=== PATIENT | female | born 2000 | race Hispanic/Latino ===

== ENCOUNTER 2020-11-21 01:29 | Inpatient (IN) | payer MEDICAID ==
[~2020-11-21] VITALS: Ht 152.4 cm; Wt 71.2 kg
[2020-11-21 01:35] VITALS: BP 171/102
[2020-11-21] MEDS ORDERED: LACTATED RINGERS 1000ML 1,000 ML IV PRN (02:30)
[2020-11-21 02:32] LABS: APPEARANCE,URINE Clear (CLEAR); BILIRUBIN,URINE Negative (NEGATIVE); COLOR,URINE Dark Yellow (YELLOW); GLUCOSE, URINE (UA) Negative (NEGATIVE); KETONES,URINE Negative (NEGATIVE); LEUKOCYTE ESTERASE ,URINE Trace (NEGATIVE); NITRATE,URINE Negative (NEGATIVE); OCCULT BLOOD,URINE Negative (NEGATIVE); PROTEIN,URINE 300 mg/dL (NEGATIVE)
[2020-11-21 02:33] LABS: HEMATOCRIT 35.6 % (36-48); MEAN CORPUSCULAR HEMOGLOBIN 31.6 pg (27.0-33.0); MEAN CORPUSCULAR HGB CONC 35.1 g/dL (32.0-36.0); MEAN CORPUSCULAR VOLUME 90.1 fL (80-100); RED BLOOD CELL COUNT(AUTO) 3.95 MIL/uL (4.00-5.50); RED CELL DISTRIBUTION WIDTH 12.2 % (11.0-15.5); WHITE BLOOD COUNT (AUTO) 12.4 K/uL (4.8-10.8)
[2020-11-21 02:47] LABS: CREATININE 0.6 mg/dL (0.5-1.5); POTASSIUM 4.1 mmol/L (3.5-5.1)
[2020-11-21 02:48] LABS: INR 0.88 (0.85-1.15); PROTHROMBIN TIME 9.7 SEC (9.6-11.6)
[2020-11-21 02:50] LABS: PARTIAL THROMBOPLASTIN TIME 22.9 SEC (26.3-35.5)
[2020-11-21 02:50] LABS: BACTERIA,URINE Few /HPF (None Seen); RBC,URINE None Seen /HPF (0-1)
[2020-11-21 02:52] LABS: ALBUMIN 2.5 g/dL (3.5-5.0); BILIRUBIN,TOTAL 0.6 mg/dL (0.2-1.0); URIC ACID 6.5 mg/dL (2.6-7.2)
[2020-11-21] MEDS ORDERED: MAGNESIUM 4GM PREMIX 100ML 100 ML IV PRN ×3 (03:00→19:00)
[2020-11-21] MEDS ORDERED: EPHEDRINE SULFATE 50 MG/ML AMPULE IVP PRN (03:00)
[2020-11-21] MEDS ORDERED: NALOXONE HCL 0.4 MG/1 ML ML IV PRN (03:00)
[2020-11-21] MEDS ORDERED: CALCIUM GLUC 1GM VIAL IV PRN ×2 (03:00→18:00)
[2020-11-21] MEDS ORDERED: MEPERIDINE-PF 50 MG/ML SYG IVP ONE (03:00)
[2020-11-21] MEDS ORDERED: LACTATED RINGERS 500 ML 500 ML IV PRN (03:00)
[2020-11-21] MEDS ORDERED: ROPIVACAINE 0.2% 100ML VIAL 100 ML EP PRN (03:00)
[2020-11-21] MEDS ORDERED: PROMETHAZINE HCL 25 MG/ML 1ML AMPULE IM PRN (03:00)
[2020-11-21] MEDS ORDERED: LACTATED RINGERS 1000ML 1,000 ML IV SCH ×3 (03:00→19:00)
[2020-11-21] MEDS ORDERED: MAGNESIUM SULFATE 40GM/1000ML 1,000 ML IV ONE (03:03)
[2020-11-21] MEDS ORDERED: MAGNESIUM 4GM PREMIX 100ML 100 ML IV ONE (03:03)
[2020-11-21 03:19] VITALS: BP 157/103
[2020-11-21] MEDS ORDERED: PREN1TAB80 PO (03:47)
[2020-11-21] MEDS ORDERED: LABETALOL 20MG VIAL IV PRN (04:00)
[2020-11-21] MEDS ORDERED: OXYTOCIN-LR 20 UNITS/1000 ML 1,000 ML IV SCH (06:00)
[2020-11-21] MEDS ORDERED: MEPERIDINE-PF 50 MG/ML SYG ONE (09:31)
[2020-11-21] MEDS ORDERED: MEPERIDINE-PF 50 MG/ML SYG IVP PRN (10:00)
[2020-11-21] MEDS ORDERED: MISOPROSTOL 200 MCG TABLET ONE (16:56)
[2020-11-21] MEDS ORDERED: MEPERIDINE-PF 25 MG/ML SYG IVP ONE (17:30)
[2020-11-21] MEDS ORDERED: MISOPROSTOL 200 MCG TABLET VG SCH (17:30)
[2020-11-21] MEDS ORDERED: MEPERIDINE-PF 25 MG/ML SYG ONE (17:42)
[2020-11-21] MEDS ORDERED: OXYTOCIN 10 USP UNITS/ML IV PRN (18:00)
[2020-11-21] MEDS ORDERED: MAGNESIUM SULFATE 40GM/1000ML 1,000 ML IV PRN ×2 (18:00→19:00)
[2020-11-21] MEDS: OXYTOCIN-LR 20 UNITS/1000 ML 1,000 ML IV SCH ×2 (18:19→18:51)
[2020-11-21] MEDS ORDERED: IBUPROFEN 600 MG TABLET ONE (18:40)
[2020-11-21] MEDS ORDERED: LANOLIN 30GM OINTMENT TP PRN (19:00)
[2020-11-21] MEDS ORDERED: WITCH HAZEL 1 PAD TP PRN (19:00)
[2020-11-21] MEDS ORDERED: BENZOCAINE/LANOLIN/ALOE VERA 60 ML AEROSOL TP PRN (19:00)
[2020-11-21] MEDS ORDERED: MEASLES/MUMPS/RUBELLA VACCINE, LIVE 0.5 ML/VIAL SQ PRN (19:00)
[2020-11-21] MEDS ORDERED: DIPH,PERTUSS(ACELL),TET VAC/PF 0.5 ML VIAL IM PRN (19:00)
[2020-11-21] MEDS ORDERED: ACETAMINOPHEN WITH CODEINE 1 TAB TAB PO PRN (19:00)
[2020-11-22] MEDS: IBUPROFEN 600 MG TABLET PO PRN ×2 (00:45→17:26)
[2020-11-22 07:31] LABS: HEMATOCRIT 30.2 % (36-48); MEAN CORPUSCULAR HEMOGLOBIN 31.8 pg (27.0-33.0); MEAN CORPUSCULAR HGB CONC 34.8 g/dL (32.0-36.0); MEAN CORPUSCULAR VOLUME 91.5 fL (80-100); RED BLOOD CELL COUNT(AUTO) 3.3 MIL/uL (4.00-5.50); RED CELL DISTRIBUTION WIDTH 12.2 % (11.0-15.5)
[2020-11-22 08:15] LABS: HEPATITIS Bs ANTIGEN SCREEN P Negative (Negative)
[2020-11-22] MEDS: DOCUSATE SODIUM 100 MG CAP PO SCH ×2 (09:00→20:52)
[2020-11-22 09:52] VITALS: BP 137/93
[2020-11-22 11:27] VITALS: BP 147/96
[2020-11-22 16:12] VITALS: BP 142/86
[2020-11-22 19:52] VITALS: BP 132/85
[2020-11-22 23:56] VITALS: BP 157/99
[2020-11-23 00:56] VITALS: BP 155/97
[2020-11-23] MEDS: IBUPROFEN 600 MG TABLET PO PRN (01:03)
[2020-11-23 04:55] VITALS: BP 151/93
[2020-11-23 08:15] VITALS: BP 166/117
[2020-11-23 08:18] VITALS: BP 160/101
[2020-11-23] MEDS: DOCUSATE SODIUM 100 MG CAP PO SCH ×2 (09:07→20:46)
[2020-11-23] MEDS: ACETAMINOPHEN 325 MG TAB PO PRN ×3 (09:08→23:54)
[2020-11-23] MEDS ORDERED: MAGNESIUM 4GM PREMIX 100ML 100 ML IV PRN ×2 (09:30)
[2020-11-23] MEDS ORDERED: HYDRALAZINE 20MG/ML VIAL IV SCH (09:30)
[2020-11-23] MEDS ORDERED: CALCIUM GLUC 1GM VIAL IV PRN (09:30)
[2020-11-23] MEDS ORDERED: LACTATED RINGERS 1000ML 1,000 ML IV SCH (09:30)
[2020-11-23] MEDS ORDERED: MAGNESIUM SULFATE 40GM/1000ML 1,000 ML IV PRN (09:30)
[2020-11-23] MEDS: MAGNESIUM SULFATE 40GM/1000ML 1,000 ML IV PRN (15:43)
[2020-11-24] MEDS: MAGNESIUM SULFATE 40GM/1000ML 1,000 ML IV PRN (06:44)
[2020-11-24] MEDS: DOCUSATE SODIUM 100 MG CAP PO SCH ×2 (09:00→20:24)
[2020-11-24 14:33] VITALS: BP 135/90
[2020-11-24 16:24] VITALS: BP 133/83
[2020-11-24 19:44] VITALS: BP 136/96
[2020-11-24 23:02] VITALS: BP 148/87
[2020-11-25 03:09] VITALS: BP 132/89
[2020-11-25 07:24] VITALS: BP 135/82
[2020-11-25] MEDS: DOCUSATE SODIUM 100 MG CAP PO SCH (09:22)
[2020-11-25] MEDS: IBUPROFEN 600 MG TABLET PO PRN (09:23)
[2020-11-25 11:26] VITALS: BP 124/74
== END 2020-11-25 15:55 | disposition home or self-care (01) | DRG 560 ==
LOC: EDH 01:29 → OBSVTOIN 01:30 → LDH 01:30 → WSH 11-22 09:30 → LDH 11-23 09:43 → WSH 11-24 16:26
PROVIDERS: ADMIT Obstetrics & Gynecology; ATTEND Obstetrics & Gynecology
PROC: 10E0XZZ Delivery of Products of Conception, External Approach (ICD-10-PCS; principal; 2020-11-21)
PROC: 0UQMXZZ Repair Vulva, External Approach (ICD-10-PCS; 2020-11-21)
PROC: 10907ZC Drainage of Amniotic Fluid, Therapeutic from Products of Conception, Via Natural or Artificial Opening (ICD-10-PCS; 2020-11-21)
PROC: 0UQGXZZ Repair Vagina, External Approach (ICD-10-PCS; 2020-11-21)
PROC: 3E0R3BZ Introduction of Anesthetic Agent into Spinal Canal, Percutaneous Approach (ICD-10-PCS; 2020-11-21)
PROC: 00HU33Z Insertion of Infusion Device into Spinal Canal, Percutaneous Approach (ICD-10-PCS; 2020-11-21)
PROC: 3E0234Z Introduction of Serum, Toxoid and Vaccine into Muscle, Percutaneous Approach (ICD-10-PCS; 2020-11-21)
PROC: 3E0134Z Introduction of Serum, Toxoid and Vaccine into Subcutaneous Tissue, Percutaneous Approach (ICD-10-PCS; 2020-11-21)
DX: O14.04 Mild to moderate pre-eclampsia, complicating childbirth (principal); O71.4 Obstetric high vaginal laceration alone; O71.82 Other specified trauma to perineum and vulva; Z37.0 Single live birth; Z3A.39 39 weeks gestation of pregnancy; Z23 Encounter for immunization
CPT/HCPCS: 36415; 80053; 81001; 82044; 84550; 85027; 85384; 85610; 85730; 86592; 86850; 86900; 86901; 87340; 90715; A4314; A4344; G0378; J0360; J2175; J2550; J2590; J2795; J3475; J3490; J7120

== ENCOUNTER 2022-03-30 19:45 | Emergency (ER) | payer MEDICAID ==
[~2022-03-30] VITALS: Ht 154.9 cm; Wt 57.6 kg
[~2022-03-30 19:45] MED LIST: PREN1TAB80 PO
[2022-03-30 21:53] LABS: APPEARANCE,URINE CLEAR (CLEAR); BILIRUBIN,URINE NEGATIVE (NEGATIVE); COLOR,URINE YELLOW (YELLOW); GLUCOSE, URINE (UA) NEGATIVE (NEGATIVE); HCG,QUALITATIVE URINE POSITIVE (NEGATIVE); KETONES,URINE NEGATIVE (NEGATIVE); LEUKOCYTE ESTERASE ,URINE 75 Leu/uL (NEGATIVE); NITRATE,URINE NEGATIVE (NEGATIVE); PROTEIN,URINE NEGATIVE (NEGATIVE); UROBILINOGEN,URINE 0.2 mg/dL (0.2-1.0)
[2022-03-30 21:58] LABS: BASOPHILS % (AUTO) 0.5 % (0.0-5.0); EOSINOPHILS % (AUTO) 0.8 % (0.0-8.0); HEMATOCRIT 30.3 % (36-48); LYMPHOCYTES % (AUTO) 30.9 % (21.0-51.0); MEAN CORPUSCULAR HEMOGLOBIN 30.6 pg (27.0-33.0); MEAN CORPUSCULAR HGB CONC 34.7 g/dL (32.0-36.0); MEAN CORPUSCULAR VOLUME 88.3 fL (79-99); NEUTROPHILS % (AUTO) 60.7 % (40.0-77.0); PLATELET COUNT (AUTO) 296 K/uL (130-400); RED BLOOD CELL COUNT(AUTO) 3.43 MIL/uL (4.00-5.50); RED CELL DISTRIBUTION WIDTH 11.8 % (11.0-15.5); WHITE BLOOD COUNT (AUTO) 10.3 K/uL (4.8-10.8)
[2022-03-30 22:03] LABS: SQUAMOUS EPITHELIAL CELL,UR RARE /HPF (0-2)
[2022-03-30 22:18] LABS: CREATININE 0.5 mg/dL (0.5-1.5); POTASSIUM 3.4 mmol/L (3.5-5.1)
[2022-03-30 22:45] LABS: ALBUMIN 3.7 g/dL (3.5-5.0); TOTAL PROTEIN, SERUM 7.3 g/dL (6.0-8.3)
[2022-03-30 22:53] VITALS: BP 127/72
== END 2022-03-30 22:54 | disposition home or self-care (01) ==
LOC: EDH 19:45
DX: O20.9 Hemorrhage in early pregnancy, unspecified (principal); Z3A.08 8 weeks gestation of pregnancy
CPT/HCPCS: 36415; 76801; 80053; 81001; 81025; 84702; 85025; 86900; 86901; 87088

== ENCOUNTER 2022-09-01 23:39 | Observation (INO) | payer MEDICAID ==
[~2022-09-01] VITALS: Ht 154.9 cm; Wt 70.3 kg
[2022-09-01 23:40] VITALS: BP 136/75
[2022-09-02] MEDS ORDERED: LACTATED RINGERS 1000ML 1,000 ML IV SCH
[2022-09-02 00:16] LABS: APPEARANCE,URINE CLEAR (CLEAR); BILIRUBIN,URINE NEGATIVE (NEGATIVE); COLOR,URINE LIGHT-YELLOW (YELLOW); GLUCOSE, URINE (UA) NEGATIVE (NEGATIVE); KETONES,URINE NEGATIVE (NEGATIVE); LEUKOCYTE ESTERASE ,URINE 25 Leu/uL (NEGATIVE); NITRATE,URINE NEGATIVE (NEGATIVE); OCCULT BLOOD,URINE NEGATIVE (NEGATIVE); PH,URINE 7.5 (5.0-8.0); PROTEIN,URINE 10 mg/dL (NEGATIVE); UROBILINOGEN,URINE 0.2 mg/dL (0.2-1.0)
[2022-09-02 00:28] LABS: RBC,URINE 0-1 /HPF (0-1); SQUAMOUS EPITHELIAL CELL,UR MOD /HPF (0-2)
[2022-09-02 01:03] LABS: AMPHET/METH SCREEN,URINE NEGATIVE (NEGATIVE); BARBITURATE SCREEN, URINE NEGATIVE (NEGATIVE); BENZODIAZEPINES SCREEN,URINE NEGATIVE (NEGATIVE); CANNABINOID SCREEN,URINE NEGATIVE (NEGATIVE); COCAINE SCREEN,URINE NEGATIVE (NEGATIVE); OPIATE SCREEN,URINE NEGATIVE (NEGATIVE); PHENCYCLIDINE SCREEN,URINE NEGATIVE (NEGATIVE)
== END 2022-09-02 02:50 | disposition home or self-care (01) ==
LOC: EDH 23:39 → LDH 23:40
PROVIDERS: ADMIT Obstetrics & Gynecology; ATTEND Obstetrics & Gynecology
DX: O46.93 Antepartum hemorrhage, unspecified, third trimester (principal); Z3A.30 30 weeks gestation of pregnancy; Z79.899 Other long term (current) drug therapy
CPT/HCPCS: 59025; 96360; 96361; 80305; 81001; 76805; G0378 ×3; G0379; J7120